=== PATIENT | female | born 1990 ===

== ENCOUNTER 2017-01-15 01:35 | Emergency (ER) | payer MEDICAID ==
[2017-01-15 01:59] VITALS: BMI 24.4
[2017-01-15 07:36] VITALS: BP 111/84; PULSE 73; RESP 16; TEMP 97.6; O2SAT 100
--- NOTE | 2017-01-15 08:38 | OBDCSUM ---
Datetime: 01/15/2017 02:56 Follow up at, Provider: [facility] Disch Instr Activity: Normal activity Disch Instr Diet: Regular Follow up in weeks, Provider: as scheduled this week Disch Referrals: None Discharge Comment, Provider: Ob hosptialist note. I saw and examined this pt with PGY1 agree with note mahndo Discharge Diagnosis Prov Other: decreased movement
--- NOTE | 2017-01-15 08:39 | OBHP ---
Datetime: 01/15/2017 03:14 IP Adm Impression: Term, intrauterine IP Admit Plan: Discharge home Admit Comment, IP Provider: 26 y/o female G1PO with IUP at 40wks gestation SCAR 01/15 by LMP and consi stent with 20wk U/S presents to [facility] with complaints of reduced movement since this morning. Pt reports that the baby is usually very active, however, today she has noticed the baby is not moving as frequently as usual. Denies vaginal bleeding, CTX, loss of fluid, dysuria, flank pain, n/v/d, feve r. PNC: seen at [facility]. PNC unremarkable. GBS negative, AB+ Remainder of PNC labs unremarkable OBHx: none PMHx: none Meds: PNV Allergies: Gluten (itching), Gelatin (itching) SocialHX: negative x3 habits Triage Vitals: BP 111/84, HR 90, T 97.6 General: NAD CVS: RRR, no murmurs Pulm: CTABL Abdomen: Gravid, NT Extremities: No edema Pelvic Exam: Cervix closed Assessment: IUP at 40wks gestation with reduced movementsx1 day. FHT reassuring, maternal vi teena signs stable. No signs of active labor. Plan: Discharge to home, advised to follow up with OB as scheudled for today at 2pm. Labor precaut ions provided. Patient verbalized understanding. Discussed with OB Attending Dr. Vignesh Cantu, PGY1 Ob hosptialist note. I saw and examined this pt with PGY1 agree with note mahndo She felt movement when she came to hospital Pelvic Type - PN: Adequate Extremities - PN: Normal Abdomen - PN: Normal Back - PN: Not Done Breast - PN: Not Done Lungs - PN: Normal Heart - PN: Normal Thyroid - PN: Not Done Neurologic - PN: Normal HEENT - PN: Not Done General - PN: Normal IP Hx Assessment: The History has been Reviewed and is Current EGA AdmitDate IP: 40.0 Vital Signs Provider: Reviewed; Within Normal Limits IP Chief Complaint: Decreased movement Genitourinary Exam: Not Done DTRs - PN: Normal
== END 2017-01-15 03:15 | disposition home or self-care (01) ==
LOC: H.EROB2 01:35
DX: O36.8130 Decreased fetal movements, third trimester, not applicable or unspecified (principal); Z3A.40 40 weeks gestation of pregnancy; O48.0 Post-term pregnancy